=== PATIENT | female | born 1955 | race Caucasian/White ===

== ENCOUNTER 2021-07-11 06:03 | Day surgery (SDC) | payer MEDICARE ==
[2021-07-11] MEDS ORDERED: fentaNYL 100 MCG/2 ML SDV ONE (06:58)
[2021-07-11] MEDS ORDERED: Propofol 200 MG/20 ML SDV ONE (06:58)
[2021-07-11] MEDS ORDERED: Midazolam 1 MG/ML 2 ML SDV ONE (06:58)
[2021-07-11] MEDS ORDERED: Sodium Chloride 0.9% 1,000 ML IV SCH (07:00)
== END 2021-07-11 09:14 | disposition home or self-care (01) ==
LOC: JP.SDS 06:03
PROVIDERS: ATTEND Surgery
DX: Z12.11 Encounter for screening for malignant neoplasm of colon (principal); I10 Essential (primary) hypertension; G47.33 Obstructive sleep apnea (adult) (pediatric)
CPT/HCPCS: J2250; J2704; J3010; J7030

== ENCOUNTER 2023-11-08 07:33 | Day surgery (SDC) | payer MEDICARE ==
[~2023-11-08 07:33] MED LIST: Midazolam 1 MG/ML 2 ML SDV ONE; Propofol 200 MG/20 ML SDV ONE; fentaNYL 50 MCG/ML SDV ONE
[2023-11-08] MEDS: Sodium Chloride 0.9% 1,000 ML IV SCH (08:37)
== END 2023-11-08 11:15 | disposition home or self-care (01) ==
LOC: JP.SDS 07:33
PROVIDERS: ATTEND Surgery
DX: K29.50 Unspecified chronic gastritis without bleeding (principal); K31.A0 Gastric intestinal metaplasia, unspecified; K31.89 Other diseases of stomach and duodenum; K25.9 Gastric ulcer, unspecified as acute or chronic, without hemorrhage or perforation; K22.89 Other specified disease of esophagus
CPT/HCPCS: 00731; 43239; 88305; J2704; J3010; J7030; J2250